=== PATIENT | female | born 1980 | race Caucasian/White ===

== ENCOUNTER 2017-07-19 13:11 | Outpatient (CLI) | payer MEDICARE, MEDICAID ==
[~2017-07-19 13:11] MED LIST: ASPI-1265 PO; CEPH-571 PO; CLOP75TA15 PO; FURO-149 PO; HYDR-3965 PO; HYDR-569 PO; HYDR200T84 PO; LISI-222 PO; MELA5TAB14 PO; MYCO250C46 PO; POTA8TAB3 PO; PRED5TAB49 PO; ROPI0.2540 PO; SIMV20TA PO; SYN0.1T PO
[2017-07-19 13:27] VITALS: BP 133/89
== END 2017-07-19 14:05 | disposition home or self-care (01) ==
LOC: ORTHO 13:11
PROVIDERS: ATTEND Nurse Practitioner Family
DX: S93.401A Sprain of unspecified ligament of right ankle, initial encounter (principal)

== ENCOUNTER 2019-06-01 16:08 | Emergency (ER) | payer MEDICARE, MEDICAID ==
[~2019-06-01] VITALS: Ht 167.6 cm; Wt 121.6 kg
[~2019-06-01 16:08] MED LIST changes: -HYDR-3965 PO; +HYDR-4383 PO; -HYDR-569 PO
[2019-06-01 17:02] LABS: BASOPHILS # (AUTO) 0.1 X10'3 (0-0.2); BASOPHILS % (AUTO) 0.9 % (0-1); EOSINOPHILS # (AUTO) 0.1 X10'3 (0-0.9); EOSINOPHILS % (AUTO) 0.6 % (0-6); HEMOGLOBIN 10.7 g/dl (12.0-16.0); LYMPHOCYTES # (AUTO) 1.8 X10'3 (1.1-4.8); LYMPHOCYTES % (AUTO) 18.9 % (21-51); MEAN CORPUSCULAR HEMOGLOBIN 29.6 PG (27.0-31.0); MEAN CORPUSCULAR HGB CONC 31.5 g/dL (33.0-36.5); MEAN PLATELET VOLUME 9.2 FL (7.4-10.4); MONOCYTES # (AUTO) 0.9 X10'3 (0-0.9); MONOCYTES % (AUTO) 9.4 % (2-12); NEUTROPHILS # (AUTO) 6.6 X10'3 (1.8-7.7); NEUTROPHILS % (AUTO) 70.2 % (42-75); PLATELET COUNT 331 X10'3 (140-440); RED BLOOD COUNT 3.61 X10'6 (4.20-5.60); WHITE BLOOD COUNT 9.4 X10'3 (4.5-11.0)
[2019-06-01 17:04] LABS: ALANINE AMINOTRANSFERASE 21 U/L (12-78); ALBUMIN 3.4 G/DL (3.4-5.0); ALKALINE PHOSPHATASE 61 IU/L (46-116); ANION GAP 11 (8-16); ASPARTATE AMINO TRANSFERASE 12 U/L (10-37); BILIRUBIN,TOTAL 0.3 MG/DL (0.1-1.0); BLOOD UREA NITROGEN 32 MG/DL (7-18); BUN/CREATININE RATIO 8.7 (6.6-38.0); CALCIUM 8.8 MG/DL (8.5-10.1); CHLORIDE 109 MMOL/L (99-107); CREATININE 3.69 MG/DL (0.40-0.90); GLUCOSE 95 MG/DL (70-104); POTASSIUM 4.2 MMOL/L (3.5-5.1); SODIUM 142 MMOL/L (135-145); TOTAL CARBON DIOXIDE 22.2 MMOL/L (24-32); TOTAL PROTEIN 6.9 G/DL (6.4-8.2); eGFR 14 ML/MIN
[2019-06-01 17:08] LABS: PARTIAL THROMBOPLASTIN TIME 24 SECONDS (22-32)
[2019-06-01 17:50] LABS: D-DIMER 0.27 MG/L FEU (0-0.50)
[2019-06-01 20:36] VITALS: BP 122/68
== END 2019-06-01 20:39 | disposition home or self-care (01) ==
LOC: ER 16:09
DX: R07.89 Other chest pain (principal); R06.02 Shortness of breath; I10 Essential (primary) hypertension; I25.2 Old myocardial infarction; J44.9 Chronic obstructive pulmonary disease, unspecified; K21.9 Gastro-esophageal reflux disease without esophagitis; F17.210 Nicotine dependence, cigarettes, uncomplicated; Z90.49 Acquired absence of other specified parts of digestive tract; Z98.890 Other specified postprocedural states; Z56.0 Unemployment, unspecified; Z88.2 Allergy status to sulfonamides; Z79.82 Long term (current) use of aspirin; Z79.899 Other long term (current) drug therapy
CPT/HCPCS: 36415; 71045; 80053; 84484; 85025; 85379; 85610; 85730; 93005; 99284

== ENCOUNTER 2019-08-30 23:56 | Emergency (ER) | payer MEDICARE, MEDICAID ==
[~2019-08-30] VITALS: Ht 167.6 cm; Wt 138.3 kg
[2019-08-31] MEDS ORDERED: tranexamic acid 100mg/ml inj. IV ONE (01:10)
[2019-08-31] MEDS ORDERED: ketorolac tromethamine 15mg/ml inj. IV ONE (01:10)
[2019-08-31 02:14] LABS: URINE HCG NEGATIVE (NEG)
[2019-08-31 02:20] LABS: CLARITY,URINE CLEAR (Clear); COLOR,URINE YELLOW (Yellow); GLUCOSE, URINE NEGATIVE (Neg); KETONES,URINE NEGATIVE (Neg); LEUKOCYTE ESTERASE ,URINE NEGATIVE (Neg); NITRITES, URINE NEGATIVE (Neg); OCCULT BLOOD,URINE MODERATE (Neg); PROTEIN,URINE 100 mg/dl (Neg); UROBILINOGEN,URINE 0.2 E.U/dL (0.2-1.0)
[2019-08-31 02:30] LABS: UA COLLECTION TYPE CLN CATCH MIDSTREAM
[2019-08-31 02:35] LABS: BACTERIA,URINE FEW /HPF (Neg); HYALINE CASTS 0-3 /LPF (NEGATIVE); MUCUS STRANDS NONE SEEN /LPF (Neg); SQUAMOUS EPITHELIAL CELL,UR FEW /LPF (FEW); WBC,URINE 0-4 /HPF (0-4)
[2019-08-31] MEDS ORDERED: ESTR1.25 PO (06:05)
[2019-08-31 06:21] VITALS: BP 147/87
== END 2019-08-31 06:23 | disposition home or self-care (01) ==
LOC: ER 23:56
DX: N92.0 Excessive and frequent menstruation with regular cycle (principal); I10 Essential (primary) hypertension; I25.2 Old myocardial infarction; J44.9 Chronic obstructive pulmonary disease, unspecified; K21.9 Gastro-esophageal reflux disease without esophagitis; Z90.49 Acquired absence of other specified parts of digestive tract; Z98.890 Other specified postprocedural states; Z56.0 Unemployment, unspecified; Z88.2 Allergy status to sulfonamides; Z79.82 Long term (current) use of aspirin; Z79.899 Other long term (current) drug therapy
CPT/HCPCS: 81001; 81025; 96374; 96375; 99283; J1885

== ENCOUNTER 2019-10-13 18:19 | Emergency (ER) | payer MEDICARE, MEDICAID ==
[~2019-10-13] VITALS: Ht 160 cm; Wt 125.0 kg
[~2019-10-13 18:19] MED LIST changes: +ESTR1.25 PO
--- NOTE | 2019-10-13 19:20 | NUR ---
INFORMED MD DODSON THAT SHE ORDERED ON WRONG PATIENT, SHE WILL DC THESE ORDERS FOR BODY FLUID CELL COUNT, ETC.
[2019-10-13] MEDS ORDERED: pantoprazole 40 MG vial IV ONE (19:25)
[2019-10-13] MEDS ORDERED: normal saline 1000ML IV soln IVB ONE ×2 (19:25→20:55)
[2019-10-13] MEDS ORDERED: ondansetron/PF 4mg/2ml inj IV ONE (19:25)
[2019-10-13] MEDS ORDERED: diphenoxylate/atropine tablet (Lomotil) PO ONE (19:25)
[2019-10-13 19:29] LABS: URINE HCG NEGATIVE (NEG)
[2019-10-13 19:37] LABS: BASOPHILS # (AUTO) 0.1 X10'3 (0-0.2); BASOPHILS % (AUTO) 0.9 % (0-1); EOSINOPHILS % (AUTO) 0.1 % (0-6); HEMATOCRIT 29.7 % (35.0-45.0); HEMOGLOBIN 9.6 g/dl (12.0-16.0); LYMPHOCYTES # (AUTO) 0.5 X10'3 (1.1-4.8); LYMPHOCYTES % (AUTO) 6.5 % (21-51); MEAN CORPUSCULAR HEMOGLOBIN 29.7 PG (27.0-31.0); MEAN CORPUSCULAR HGB CONC 32.3 g/dL (33.0-36.5); MEAN CORPUSCULAR VOLUME 91.7 FL (78-98); MEAN PLATELET VOLUME 9.3 FL (7.4-10.4); MONOCYTES # (AUTO) 0.4 X10'3 (0-0.9); MONOCYTES % (AUTO) 5.1 % (2-12); NEUTROPHILS # (AUTO) 7.1 X10'3 (1.8-7.7); NEUTROPHILS % (AUTO) 87.4 % (42-75); PLATELET COUNT 329 X10'3 (140-440); RED BLOOD COUNT 3.23 X10'6 (4.20-5.60); RED CELL DISTRIBUTION WIDTH 15.8 % (11.5-14.5); WHITE BLOOD COUNT 8.1 X10'3 (4.5-11.0)
[2019-10-13 19:46] LABS: CLARITY,URINE SLIGHTLY CLOUDY (Clear); COLOR,URINE YELLOW (Yellow); GLUCOSE, URINE NEGATIVE (Neg); KETONES,URINE NEGATIVE (Neg); LEUKOCYTE ESTERASE ,URINE NEGATIVE (Neg); NITRITES, URINE NEGATIVE (Neg); OCCULT BLOOD,URINE MODERATE (Neg); PH,URINE 5.5 (4.8-8.0); PROTEIN,URINE 100 mg/dl (Neg); UROBILINOGEN,URINE 0.2 E.U/dL (0.2-1.0)
[2019-10-13 19:48] LABS: ALANINE AMINOTRANSFERASE 63 U/L (12-78); ALBUMIN 3.8 G/DL (3.4-5.0); ALBUMIN/GLOBULIN RATIO 1.2 (1.1-1.5); ALKALINE PHOSPHATASE 128 IU/L (46-116); ANION GAP 15 (8-16); ASPARTATE AMINO TRANSFERASE 44 U/L (10-37); BILIRUBIN,TOTAL 0.4 MG/DL (0.1-1.0); BLOOD UREA NITROGEN 39 MG/DL (7-18); BUN/CREATININE RATIO 7.8 (6.6-38.0); CALCIUM 9.1 MG/DL (8.5-10.1); CHLORIDE 107 MMOL/L (99-107); CREATININE 5.02 MG/DL (0.40-0.90); GLUCOSE 106 MG/DL (70-104); LIPASE 377 U/L (73-393); POTASSIUM 4.8 MMOL/L (3.5-5.1); SODIUM 139 MMOL/L (135-145); TOTAL CARBON DIOXIDE 17.4 MMOL/L (24-32); TOTAL PROTEIN 7.1 G/DL (6.4-8.2); eGFR 10 ML/MIN
[2019-10-13 19:51] LABS: UA COLLECTION TYPE CLN CATCH MIDSTREAM
[2019-10-13 19:52] LABS: BACTERIA,URINE FEW /HPF (Neg); RBC,URINE 0-2 /HPF (0-2); SQUAMOUS EPITHELIAL CELL,UR MODERATE /LPF (FEW); WBC,URINE 0-4 /HPF (0-4)
[2019-10-13] MEDS ORDERED: DIPH1TAB PO ×2 (20:49→20:52)
[2019-10-13] MEDS ORDERED: PANT-47 PO (20:49)
[2019-10-13] MEDS ORDERED: ONDA8TAB13 PO (20:49)
[2019-10-13 21:07] VITALS: BP 116/68
== END 2019-10-13 21:09 | disposition home or self-care (01) ==
LOC: ER 18:19
DX: I12.9 Hypertensive chronic kidney disease with stage 1 through stage 4 chronic kidney disease, or unspecified chronic kidney disease (principal); N18.9 Chronic kidney disease, unspecified; K21.9 Gastro-esophageal reflux disease without esophagitis; I25.2 Old myocardial infarction; J44.9 Chronic obstructive pulmonary disease, unspecified; E03.9 Hypothyroidism, unspecified; Z56.0 Unemployment, unspecified; Z90.49 Acquired absence of other specified parts of digestive tract; Z98.890 Other specified postprocedural states; Z88.2 Allergy status to sulfonamides; Z79.82 Long term (current) use of aspirin; Z79.899 Other long term (current) drug therapy
CPT/HCPCS: 36415; 80053; 81001; 81025; 83690; 85025; 96374; 96375; 99283; C9113; J2405; J7030

== ENCOUNTER 2019-12-22 17:53 | Emergency (ER) | payer MEDICARE, MEDICAID ==
[~2019-12-22] VITALS: Ht 167.6 cm; Wt 122.7 kg
[~2019-12-22 17:53] MED LIST changes: +AMO250C PO; +CALC0.2536 PO; -CEPH-571 PO; +CHOL20004 PO; -ESTR1.25 PO; -HYDR-4383 PO; +LEVO250T58 PO; +ONDA8TAB6 PO; +PANT40TA4 PO; -ROPI0.2540 PO; +ROSU20TA2 PO; -SIMV20TA PO; +SODI650T29 PO; +TOPI25TA15 PO; +VENL75TA4 PO
[2019-12-22 17:54] VITALS: BP 148/87
[2019-12-22] MEDS ORDERED: dexamethasone 4mg tablet PO ONE (18:10)
[2019-12-22] MEDS ORDERED: LIDOcaine Viscous 15ml cup MM ONE (18:15)
[2019-12-22 18:46] LABS: MONOTEST NEGATIVE (Neg)
== END 2019-12-22 19:10 | disposition home or self-care (01) ==
LOC: ER 17:53
DX: J02.9 Acute pharyngitis, unspecified (principal); I10 Essential (primary) hypertension; I25.2 Old myocardial infarction; J44.9 Chronic obstructive pulmonary disease, unspecified; K21.9 Gastro-esophageal reflux disease without esophagitis; Z90.49 Acquired absence of other specified parts of digestive tract; Z98.890 Other specified postprocedural states; Z56.0 Unemployment, unspecified; Z88.2 Allergy status to sulfonamides; Z79.82 Long term (current) use of aspirin; Z79.2 Long term (current) use of antibiotics; Z79.899 Other long term (current) drug therapy
CPT/HCPCS: 36415; 86308; 87081; 87880; 99283

== ENCOUNTER 2019-12-28 19:00 | Emergency (ER) | payer MEDICARE, MEDICAID ==
[~2019-12-28] VITALS: Ht 167.6 cm; Wt 127.0 kg
[2019-12-28 19:08] VITALS: BP 144/90
--- NOTE | 2019-12-28 19:33 | NUR ---
DR SPICERFS AT BEDSIDE
[2019-12-28 20:33] LABS: ALBUMIN 3.8 G/DL (3.4-5.0); ANION GAP 13 (8-16); BLOOD UREA NITROGEN 35 MG/DL (7-18); CALCIUM 9.2 MG/DL (8.5-10.1); CHLORIDE 107 MMOL/L (99-107); CREATININE 4.39 MG/DL (0.40-0.90); GLUCOSE 92 MG/DL (70-104); MAGNESIUM 2.1 MG/DL (1.5-2.4); SODIUM 142 MMOL/L (135-145); TOTAL CARBON DIOXIDE 22.2 MMOL/L (24-32); eGFR 11 ML/MIN
== END 2019-12-28 20:48 | disposition home or self-care (01) ==
LOC: ER 19:01
DX: N19 Unspecified kidney failure (principal); G62.9 Polyneuropathy, unspecified; I10 Essential (primary) hypertension; I25.2 Old myocardial infarction; J44.9 Chronic obstructive pulmonary disease, unspecified; K21.9 Gastro-esophageal reflux disease without esophagitis; E03.9 Hypothyroidism, unspecified; Z98.51 Tubal ligation status; Z87.59 Personal history of other complications of pregnancy, childbirth and the puerperium; Z88.2 Allergy status to sulfonamides; Z79.2 Long term (current) use of antibiotics; Z79.82 Long term (current) use of aspirin; Z79.899 Other long term (current) drug therapy
CPT/HCPCS: 36415; 80048; 83735; 99283

== ENCOUNTER 2020-01-26 15:32 | Emergency (ER) | payer MEDICARE, MEDICAID ==
[~2020-01-26] VITALS: Ht 167.6 cm; Wt 126.3 kg
[2020-01-26 15:37] VITALS: BP 125/70
[2020-01-26] MEDS ORDERED: bacitracin 15gm ointment TP ONE (16:45)
[2020-01-26] MEDS ORDERED: LIDOcaine 1% W/epiNEPHrine 1:200,000 10ml vial IJ ONE (16:45)
== END 2020-01-26 18:39 | disposition home or self-care (01) ==
LOC: ER 15:32
DX: S90.811A Abrasion, right foot, initial encounter (principal); S80.211A Abrasion, right knee, initial encounter; I10 Essential (primary) hypertension; I25.2 Old myocardial infarction; J44.9 Chronic obstructive pulmonary disease, unspecified; K21.9 Gastro-esophageal reflux disease without esophagitis; E03.9 Hypothyroidism, unspecified; Z90.49 Acquired absence of other specified parts of digestive tract; Z56.0 Unemployment, unspecified; Z88.2 Allergy status to sulfonamides; Z79.82 Long term (current) use of aspirin; W19.XXXA Unspecified fall, initial encounter; Y93.89 Activity, other specified; Y92.89 Other specified places as the place of occurrence of the external cause; Y99.8 Other external cause status
CPT/HCPCS: 12001; 99282

== ENCOUNTER 2020-06-05 18:41 | Emergency (ER) | payer MEDICARE, MEDICAID ==
[~2020-06-05] VITALS: Ht 167.6 cm; Wt 127.3 kg
[~2020-06-05 18:41] MED LIST changes: -PANT40TA4 PO; +PANT40TA54 PO
[2020-06-05 19:09] LABS: COLOR,URINE YELLOW (Yellow); GLUCOSE, URINE NEGATIVE (Neg); KETONES,URINE NEGATIVE (Neg); LEUKOCYTE ESTERASE ,URINE MODERATE (Neg); NITRITES, URINE POSITIVE (Neg); OCCULT BLOOD,URINE MODERATE (Neg); PROTEIN,URINE 100 mg/dl (Neg); UROBILINOGEN,URINE 0.2 E.U/dL (0.2-1.0)
[2020-06-05 19:10] LABS: URINE HCG NEGATIVE (NEG)
[2020-06-05 19:15] LABS: CLARITY,URINE SLIGHTLY CLOUDY (Clear)
[2020-06-05 19:25] LABS: UA COLLECTION TYPE CLN CATCH MIDSTREAM
[2020-06-05 19:26] LABS: WBC,URINE 50-100 /HPF (0-4)
[2020-06-05 19:27] LABS: BACTERIA,URINE 3+ /HPF (Neg); MUCUS STRANDS NONE SEEN /LPF (Neg); SQUAMOUS EPITHELIAL CELL,UR FEW /LPF (FEW)
[2020-06-05] MEDS ORDERED: PHEN-824 PO (19:31)
[2020-06-05] MEDS ORDERED: CEPH500C5 PO (19:31)
[2020-06-05 19:47] VITALS: BP 138/93
== END 2020-06-05 19:45 | disposition home or self-care (01) ==
LOC: ER 18:42
DX: N39.0 Urinary tract infection, site not specified (principal); I10 Essential (primary) hypertension; I25.2 Old myocardial infarction; J44.9 Chronic obstructive pulmonary disease, unspecified; K21.9 Gastro-esophageal reflux disease without esophagitis; E03.9 Hypothyroidism, unspecified; Z90.49 Acquired absence of other specified parts of digestive tract; Z98.890 Other specified postprocedural states; Z88.2 Allergy status to sulfonamides; Z79.82 Long term (current) use of aspirin; Z79.899 Other long term (current) drug therapy
CPT/HCPCS: 81001; 81025; 87077; 87088; 87186; 99283

== ENCOUNTER 2020-07-27 15:40 | Emergency (ER) | payer MEDICARE, MEDICAID ==
[~2020-07-27] VITALS: Ht 167.6 cm; Wt 134.0 kg
[~2020-07-27 15:40] MED LIST changes: +PHEN-824 PO
[2020-07-27 16:49] LABS: D-DIMER 0.86 MG/L FEU (0-0.50)
[2020-07-27] MEDS ORDERED: normal saline 1000ML IV soln IVB ONE (17:00)
[2020-07-27 17:11] LABS: BASOPHILS % (AUTO) 0.3 % (0-1); EOSINOPHILS % (AUTO) 0 % (0-6); HEMATOCRIT 33.3 % (35.0-45.0); HEMOGLOBIN 10.5 g/dl (12.0-16.0); LYMPHOCYTES # (AUTO) 0.2 X10'3 (1.1-4.8); LYMPHOCYTES % (AUTO) 1.6 % (21-51); MEAN CORPUSCULAR HEMOGLOBIN 30.6 PG (27.0-31.0); MEAN CORPUSCULAR HGB CONC 31.6 g/dL (33.0-36.5); MEAN CORPUSCULAR VOLUME 96.8 FL (78-98); MEAN PLATELET VOLUME 9.3 FL (7.4-10.4); MONOCYTES # (AUTO) 0.4 X10'3 (0-0.9); MONOCYTES % (AUTO) 2.8 % (2-12); NEUTROPHILS # (AUTO) 11.9 X10'3 (1.8-7.7); NEUTROPHILS % (AUTO) 95.3 % (42-75); PLATELET COUNT 241 X10'3 (140-440); RED BLOOD COUNT 3.44 X10'6 (4.20-5.60); RED CELL DISTRIBUTION WIDTH 15.5 % (11.5-14.5); WHITE BLOOD COUNT 12.5 X10'3 (4.5-11.0)
[2020-07-27 17:37] LABS: ALANINE AMINOTRANSFERASE 19 U/L (12-78); ALBUMIN 3.5 G/DL (3.4-5.0); ALBUMIN/GLOBULIN RATIO 0.9 (1.1-1.5); ALKALINE PHOSPHATASE 62 IU/L (46-116); ANION GAP 19 (8-16); ASPARTATE AMINO TRANSFERASE 16 U/L (10-37); BILIRUBIN,TOTAL 0.2 MG/DL (0.1-1.0); BLOOD UREA NITROGEN 56 MG/DL (7-18); BUN/CREATININE RATIO 6.8 (6.6-38.0); C-REACTIVE PROTEIN 1.61 MG/DL (0.0-0.5); CALCIUM 8.3 MG/DL (8.5-10.1); CHLORIDE 105 MMOL/L (99-107); CREATININE 8.29 MG/DL (0.40-0.90); FERRITIN 202 NG/ML (8-252); GLUCOSE 114 MG/DL (70-104); LACTATE DEHYDROGENASE 348 U/L (81-234); MAGNESIUM 1.6 MG/DL (1.5-2.4); POTASSIUM 4.1 MMOL/L (3.5-5.1); SODIUM 135 MMOL/L (135-145); TOTAL PROTEIN 7.2 G/DL (6.4-8.2); eGFR 5 ML/MIN
[2020-07-27 17:43] LABS: TOTAL CARBON DIOXIDE 11.3 MMOL/L (24-32)
--- NOTE | 2020-07-27 17:55 | NUR ---
first time interacting with the pt ,pt brought in to room 30 mins ago from ambulance bay .
--- NOTE | 2020-07-27 18:33 | NUR ---
tried to get iv on pt 3 times unsucessful ,notified primary nurse michelle.
[2020-07-27 18:50] LABS: ABG BASE EXCESS -16.7 mmol/L (-2.0-2.0); ABG HCO3 9.4 mmol/L (22.0-26.0); ABG OXYGEN SATURATION 93.7 % (94-97); ABG PO2 (T) 78.3 mmHg (75.0-100.0); FCOHb 0.7 % (0.0-3.9); FMetHb 0.3 % (0.0-1.5); FO2Hb 92.8 % (94-97); PATIENT TEMPERATURE 37.2; TOTAL HEMOGLOBIN 10.5 G/dl (12.0-16.0)
[2020-07-27] MEDS ORDERED: acetaminophen 325mg tablet PO ONE (18:55)
[2020-07-27] MEDS ORDERED: ATOR40TA PO (19:18)
[2020-07-27] MEDS ORDERED: VENL25TA48 PO (19:18)
--- NOTE | 2020-07-27 19:18 | NUR ---
per pt, hx of lupus causing kidney issues. supposed to start hemodialysis this coming week, but won't be able to due to positive covid. tested positive one and a half weeks ago.
--- NOTE | 2020-07-27 20:49 | NUR ---
Breaking Primary RN, pt requests commode brought her one
[2020-07-27] MEDS ORDERED: FURO-149 PO (21:00)
[2020-07-27] MEDS ORDERED: ketorolac tromethamine 15mg/ml inj. IM ONE (21:05)
[2020-07-27 21:20] VITALS: BP 137/96
== END 2020-07-27 21:45 | disposition home or self-care (01) ==
LOC: ER 15:43
DX: U07.1 COVID-19 (principal); R06.02 Shortness of breath; E87.4 Mixed disorder of acid-base balance; N17.9 Acute kidney failure, unspecified; N18.9 Chronic kidney disease, unspecified; I12.0 Hypertensive chronic kidney disease with stage 5 chronic kidney disease or end stage renal disease; K21.9 Gastro-esophageal reflux disease without esophagitis; J44.9 Chronic obstructive pulmonary disease, unspecified; E03.9 Hypothyroidism, unspecified; Z90.49 Acquired absence of other specified parts of digestive tract; Z90.710 Acquired absence of both cervix and uterus; Z56.0 Unemployment, unspecified; Z88.2 Allergy status to sulfonamides; Z88.1 Allergy status to other antibiotic agents; Z79.899 Other long term (current) drug therapy; Z79.82 Long term (current) use of aspirin
CPT/HCPCS: 36415; 36600; 71045; 80053; 82728; 82803; 83615; 83735; 84145; 84484; 85018; 85025; 85379; 85384; 86140; 93005; 96360; 96372; 99285; J1885; J7030